=== PATIENT | female | born 1940 | race Caucasian/White ===

== ENCOUNTER 2018-10-02 11:27 | Inpatient (IN) | payer MEDICARE ==
[~2018-10-02] VITALS: Ht 157.5 cm; Wt 59.7 kg
[2018-10-02] MEDS ORDERED: SODIUM CHLORIDE FLUSH 10ML SYR IVF ONE (12:00)
[2018-10-02] MEDS ORDERED: LORazepam 2 MG/ML, 1ML ONE ×2 (12:05→15:20)
[2018-10-02 12:11] LABS: BASOPHILS # (AUTO) 0.01 x10^3/uL (0-0.1); BASOPHILS % (AUTO) 0 % (0-1); EOSINOPHILS # (AUTO) 0.03 x10^3/uL (0-0.4); EOSINOPHILS % (AUTO) 0 % (1-7); LYMPHOCYTES # (AUTO) 1.79 x10^3/uL (1-3.4); LYMPHOCYTES % (AUTO) 24 % (22-44); MD NO; MEAN CORPUSCULAR HEMOGLOBIN 31.5 pg (27.0-34.8); MEAN CORPUSCULAR HGB CONC 34.4 g/dL (32.4-35.8); MEAN CORPUSCULAR VOLUME 91.8 fL (80-100); MONOCYTES # (AUTO) 0.23 x10^3/uL (0.2-0.8); MONOCYTES % (AUTO) 3 % (2-9); NEUTROPHILS # (AUTO) 5.42 x10^3/uL (1.8-6.8); NEUTROPHILS % (AUTO) 73 % (42-75); PLATELET COUNT 312 x10^3/uL (130-400); RED BLOOD COUNT 4.31 x10^6/uL (3.82-5.3)
[2018-10-02 12:23] LABS: ALBUMIN 3.5 g/dL (3.4-5.0); ANION GAP 12 mmol/L (5-15); CHLORIDE 106 mmol/L (98-107); CREATININE 0.79 mg/dL (0.55-1.02)
[2018-10-02] MEDS ORDERED: METF500T17 PO (12:33)
[2018-10-02] MEDS ORDERED: ATOR20TA37 PO (12:33)
[2018-10-02] MEDS ORDERED: MEMA10TA PO (12:33)
[2018-10-02] MEDS ORDERED: LEVO75TA5 PO (12:33)
[2018-10-02] MEDS ORDERED: TRAZ-137 PO (12:33)
[2018-10-02] MEDS ORDERED: QUET200T4 PO (12:33)
[2018-10-02] MEDS ORDERED: LORA-446 PO (12:33)
[2018-10-02] MEDS ORDERED: FLUT9.9S INH (12:33)
[2018-10-02] MEDS ORDERED: MIRT15TA PO (12:33)
[2018-10-02] MEDS ORDERED: PANT40TA5 PO (12:35)
[2018-10-02 13:31] LABS: MICROSCOPIC INDICATED
[2018-10-02 13:41] LABS: CULTURE INDICATED? YES
[2018-10-02] MEDS ORDERED: hydrALAzine 20 MG/ML, 1ML IVPush PRN (14:30)
[2018-10-02] MEDS ORDERED: SODIUM CHLORIDE FLUSH 10ML SYR IVF PRN (14:30)
[2018-10-02] MEDS ORDERED: LABETALOL 5MG/ML, 20ML IVPush PRN (14:30)
[2018-10-02] MEDS ORDERED: ONDANSETRON 2MG/ML, 2ML IVPush PRN (14:30)
[2018-10-02] MEDS ORDERED: ACETAMINOPHEN 325 MG TABLET PO PRN (14:30)
[2018-10-02] MEDS ORDERED: LORazepam 2 MG/ML, 1ML IVPush PRN (14:30)
[2018-10-02 14:55] LABS: THYROID STIMULATING HORMONE 1.18 mIU/L (0.358-3.740)
[2018-10-02] MEDS ORDERED: HEPARIN 5,000 UNITS/ML, 1ML ONE (15:15)
[2018-10-02] MEDS: HEPARIN 5,000 UNITS/ML, 1ML SQ SCH ×2 (15:18→22:30)
[2018-10-02] MEDS ORDERED: MAGNESIUM SULFATE PMX 2GM/50ML 50 ML IV ONE (15:30)
[2018-10-02 16:02] LABS: HEMOGLOBIN A1C 6.3 % (4.2-6.3)
[2018-10-02 16:25] VITALS: BP 184/87
[2018-10-02] MEDS: POTASSIUM CHLORIDE 40 MEQ in SODIUM CHLORIDE 0.9% 1,000 ML IV SCH (16:38)
[2018-10-02] MEDS: PANTOPROZOLE 40MG TABLET PO SCH (16:38)
[2018-10-02] MEDS: metFORMIN 500 MG TABLET PO SCH ×2 (16:38→16:55)
[2018-10-02 17:00] VITALS: BP 170/78
[2018-10-02 19:46] VITALS: BP 165/90
[2018-10-02] MEDS: LEVOTHYROXINE 75 MCG TABLET PO SCH (20:52)
[2018-10-02] MEDS: QUETIAPINE 200 MG TABLET PO SCH (20:52)
[2018-10-02] MEDS: TRAZODONE 100MG TABLET PO SCH (20:52)
[2018-10-02] MEDS: MIRTAZAPINE 15 MG TABLET PO SCH (20:52)
[2018-10-02] MEDS: ATORVASTATIN 20 MG TABLET PO SCH (20:52)
[2018-10-03 02:58] VITALS: BP 123/78
[2018-10-03 05:28] LABS: BASOPHILS # (AUTO) 0.02 x10^3/uL (0-0.1); BASOPHILS % (AUTO) 0 % (0-1); EOSINOPHILS # (AUTO) 0.09 x10^3/uL (0-0.4); EOSINOPHILS % (AUTO) 1 % (1-7); LYMPHOCYTES # (AUTO) 2.99 x10^3/uL (1-3.4); LYMPHOCYTES % (AUTO) 32 % (22-44); MD NO; MEAN CORPUSCULAR HEMOGLOBIN 30.7 pg (27.0-34.8); MEAN CORPUSCULAR HGB CONC 33.2 g/dL (32.4-35.8); MEAN CORPUSCULAR VOLUME 92.4 fL (80-100); MEAN PLATELET VOLUME 8.8 fL (7.4-10.4); MONOCYTES # (AUTO) 0.52 x10^3/uL (0.2-0.8); MONOCYTES % (AUTO) 6 % (2-9); NEUTROPHILS # (AUTO) 5.72 x10^3/uL (1.8-6.8); NEUTROPHILS % (AUTO) 61 % (42-75); PLATELET COUNT 289 x10^3/uL (130-400); RED BLOOD COUNT 4.11 x10^6/uL (3.82-5.3); RED CELL DISTRIBUTION WIDTH 16.1 % (9.6-15.2)
[2018-10-03 05:39] LABS: ANION GAP 7 mmol/L (5-15); CHLORIDE 109 mmol/L (98-107); CREATININE 0.66 mg/dL (0.55-1.02)
[2018-10-03 06:12] VITALS: BP 118/61
[2018-10-03] MEDS: LORazepam 1MG TABLET PO SCH (08:00)
[2018-10-03] MEDS: FLUTICASONE NASAL SPRAY 16GM NAS SCH (08:00)
[2018-10-03] MEDS: HEPARIN 5,000 UNITS/ML, 1ML SQ SCH ×2 (08:00→16:24)
[2018-10-03] MEDS ORDERED: FLUMAZENIL 0.1 MG/1 ML, 5ML ONE (08:32)
[2018-10-03] MEDS ORDERED: MIDAZOLAM 1 MG/ML, 5ML ONE (08:32)
[2018-10-03] MEDS ORDERED: FENTANYL PF 100 MCG/2ML ONE (08:32)
[2018-10-03] MEDS ORDERED: NALOXONE 1 MG/ML, 2ML ONE (08:32)
[2018-10-03] MEDS: MEMANTINE 10MG TABLET PO SCH (09:00)
[2018-10-03] MEDS: MIRTAZAPINE 15 MG TABLET PO SCH ×2 (09:00→20:37)
[2018-10-03] MEDS ORDERED: GADOBUTROL 7.5 MMOL/7.5 ML PFS ONE (09:21)
[2018-10-03] MEDS: PANTOPROZOLE 40MG TABLET PO SCH ×2 (09:38→18:20)
[2018-10-03] MEDS: POTASSIUM CHLORIDE 40 MEQ in SODIUM CHLORIDE 0.9% 1,000 ML IV SCH ×2 (11:26→21:00)
[2018-10-03] MEDS ORDERED: MAGNESIUM SULFATE PMX 2GM/50ML 50 ML IV ONE (11:30)
[2018-10-03] MEDS: POTASSIUM CHLORIDE 20 MEQ PACKET PO SCH ×2 (12:10→18:18)
[2018-10-03 14:37] VITALS: BP 110/70
[2018-10-03] MEDS: ZONISAMIDE 50 MG CAPSULE PO SCH ×2 (16:24→20:36)
[2018-10-03] MEDS ORDERED: LORazepam 1MG TABLET PO ONE (16:30)
[2018-10-03] MEDS: metFORMIN 500 MG TABLET PO SCH (18:18)
[2018-10-03] MEDS: TRAZODONE 100MG TABLET PO SCH (20:38)
[2018-10-03] MEDS: LEVOTHYROXINE 75 MCG TABLET PO SCH (20:38)
[2018-10-03] MEDS: QUETIAPINE 200 MG TABLET PO SCH (20:38)
[2018-10-03] MEDS: ATORVASTATIN 20 MG TABLET PO SCH (20:39)
[2018-10-03 21:05] VITALS: BP 151/81
[2018-10-04] MEDS: POTASSIUM CHLORIDE 20 MEQ TAB.ER.PRT PO SCH ×2 (00:43→09:00)
[2018-10-04] MEDS: HEPARIN 5,000 UNITS/ML, 1ML SQ SCH ×2 (00:44→09:00)
[2018-10-04 01:04] VITALS: BP 119/61
[2018-10-04 05:20] LABS: ANION GAP 7 mmol/L (5-15); CALCIUM 8.8 mg/dL (8.5-10.1); CHLORIDE 108 mmol/L (98-107); CREATININE 0.64 mg/dL (0.55-1.02)
[2018-10-04] MEDS: POTASSIUM CHLORIDE 40 MEQ in SODIUM CHLORIDE 0.9% 1,000 ML IV SCH (07:50)
[2018-10-04] MEDS: POTASSIUM CHLORIDE 20 MEQ PACKET PO SCH (09:00)
[2018-10-04] MEDS: PANTOPROZOLE 40MG TABLET PO SCH (09:00)
[2018-10-04] MEDS: FLUTICASONE NASAL SPRAY 16GM NAS SCH (09:00)
[2018-10-04] MEDS ORDERED: CEFD300C37 PO (10:14)
[2018-10-04] MEDS ORDERED: ZONI50CA2 PO (10:14)
[2018-10-04] MEDS: MIRTAZAPINE 15 MG TABLET PO SCH (11:18)
[2018-10-04] MEDS: MEMANTINE 10MG TABLET PO SCH (11:19)
[2018-10-04] MEDS: LORazepam 1MG TABLET PO SCH (11:19)
== END 2018-10-04 11:35 | disposition home or self-care (01) | DRG 101 ==
LOC: ED 14:52 → EDIP 14:53 → 4EST 15:47 → DCLOUNGE 10-04 11:25
PROVIDERS: ADMIT Hospitalist; ATTEND Hospitalist
PROC: 0T9B70Z Drainage of Bladder with Drainage Device, Via Natural or Artificial Opening (ICD-10-PCS; principal; 2018-10-02)
DX: R56.9 Unspecified convulsions (principal); N39.0 Urinary tract infection, site not specified; E44.0 Moderate protein-calorie malnutrition; B96.20 Unspecified Escherichia coli [E. coli] as the cause of diseases classified elsewhere; E03.9 Hypothyroidism, unspecified; E11.9 Type 2 diabetes mellitus without complications; E78.5 Hyperlipidemia, unspecified; E87.6 Hypokalemia; F02.80 Dementia in other diseases classified elsewhere, unspecified severity, without behavioral disturbance, psychotic disturbance, mood disturbance, and anxiety; F41.1 Generalized anxiety disorder; G30.9 Alzheimer's disease, unspecified; Z90.49 Acquired absence of other specified parts of digestive tract; Z90.710 Acquired absence of both cervix and uterus; Z68.24 Body mass index [BMI] 24.0-24.9, adult
CPT/HCPCS: 36415; 70450; 70553; 71045; 80048; 81001; 82040; 83036; 83605; 83735; 84100; 84145; 84443; 85025; 87040; 87077; 87086; 87186; 93005; 95812; 96372; 96374; 96375; 99285; A9585; G0378; J1644; J2250; J3010; J3480; J2060; J2310; J3475; J7030